=== PATIENT | female | born 1980 | race Two or more races ===

== ENCOUNTER 2018-07-19 09:00 | Inpatient (IN) | payer OTHER ==
[2018-07-19] MEDS ORDERED: TUBERCULIN PPD 5 TU/0.1ML SYRINGE (IN PATIENT USE ONLY) ID ONE ×2 (10:25→11:15)
[2018-07-19 10:42] VITALS: BMI 25.0
[2018-07-19 11:45] LABS: BASO % 0.5 % (0-2.0); EOS % 0.7 % (0-4.5); HEMATOCRIT 34.9 % (32.4-45.2); HEMOGLOBIN 11.6 GM/dL (10.7-15.3); LYMPH % 21.4 % (8-40); MCH 29.4 pg (25.7-33.7); MCHC 33.1 g/dl (32.0-36.0); MEAN CELL VOLUME 88.7 fl (80-96); MEAN PLT VOLUME 9.6 fl (7.5-11.1); MONO % 5.9 % (3.8-10.2); NEUT % 71.5 % (42.8-82.8); PLATELET COUNT 205 K/MM3 (134-434); RBC 3.93 M/mm3 (3.60-5.2); RDW 15.2 % (11.6-15.6); WHITE BLOOD COUNT 6.9 K/mm3 (4.0-10.0)
[2018-07-19] MEDS ORDERED: DINOPROSTONE 10 MG VAGINAL SUPPOSITORY VG ONE (12:00)
[2018-07-19 12:13] LABS: ANION GAP 11 MMOL/L (8-16); BLOOD UREA NITROGEN 12 mg/dL (7-18); CALCIUM 8.7 mg/dL (8.5-10.1); CHLORIDE 108 mmol/L (98-107); CO2 22 mmol/L (21-32); CREATININE 0.4 mg/dL (0.55-1.3); GLUCOSE,RANDOM 68 mg/dL (74-106); SODIUM 141 mmol/L (136-145)
[2018-07-19 12:34] LABS: INR 0.96 (0.83-1.09); PROTHROMBIN TIME (PATIENT) 11.3 SEC (9.7-13.0)
--- NOTE | 2018-07-19 12:55 | HP ---
Past Medical History - Primary Care Physician PCP:: Emilia Wolff - Admission Chief Complaint: Grand multiparous. preexisitng diabetes 2. 39 weeks'. Hx of demise History of Present Illness: 38 yo with Hx of demise at 39 weeks DM2 on insulin admitted for induction of labor History Source: Patient - Past Medical History ...: 7 ...Para: 5 ...Term: 5 ...: 0 ...Spon : 0 ...Induced : 0 ...Multiple Gestation: 0 ...LMP: 10/16/17 ... Weeks Gestation by Dates: 39.3 ...EDC by Dates: 07/23/18 ...EDC by Sono: 07/25/18 - Past Surgical History Past Surgical History: Yes: None Hx Myomectomy: No Hx Transabdominal Cerclage: No - Smoking History Smoking history: Never smoked - Alcohol/Substance Use Hx Alcohol Use: No History of Substance Use: reports: None - Social History Usual Living Arrangement: Yes: With Spouse Home Medications - Allergies Allergies/Adverse Reactions: Allergies Allergy/AdvReac Type Severity Reaction Status Date / Time No Known Allergies Allergy Verified 07/18/18 11:02 - Home Medications Home Medications: Ambulatory Orders Insulin Regular 5 units SQ TID 07/16/18 Insulin (Levemir) [Levemir Vial] 22 units SQ HS 07/18/18 Review of Systems - Review of Systems Constitutional: reports: No Symptoms Eyes: reports: No Symptoms HENT: reports: No Symptoms Neck: reports: No Symptoms Cardiovascular: reports: No Symptoms Respiratory: reports: No Symptoms Gastrointestinal: reports: No Symptoms Genitourinary: reports: No Symptoms Breasts: reports: No Symptoms Reported Musculoskeletal: reports: No Symptoms Integumentary: reports: No Symptoms Neurological: reports: No Symptoms Endocrine: reports: No Symptoms Hematology/Lymphatic: reports: No Symptoms Psychiatric: reports: No Symptoms Physical Exam - Maternity Vital Signs: Vital Signs Temperature 98.6 F 07/19/18 12:00 Pulse Rate 80 07/19/18 12:00 Respiratory Rate 18 07/19/18 12:00 Blood Pressure 109/68 07/19/18 12:00 O2 Sat by Pulse Oximetry (%) Constitutional: Yes: Well Nourished, No Distress HENT: Yes: WNL Neck: Yes: WNL Cardiovascular: Yes: WNL Lungs: Clear to auscultation Breast(s): Yes: WNL - Abdominal Exam/OB Fundal Height: 40 Number of Fetuses: Single Presentation: Vertex Contractions: No Category: I - Vaginal Exam/OB Dilatation (cm): 1 Effacement (%): 70 Amniotic Membrane Status: Intact Presentation: Vertex/Position Station: -1 - Physical Exam Musculoskeletal: Yes: WNL Extremities: Yes: WNL Edema: No Psychiatric: Yes: WNL, Alert, Oriented - Labs Lab Results: CBC, BMP 07/19/18 10:50 07/19/18 10:50 Hemorrhage Risk Assessment - Risk Factors Medium Risk Factors: Yes: Greater than 4 previous births Risk Score: 1 Risk Level: Medium Risk Problem List - Problems (1) Grand multipara Code(s): Z64.1 - PROBLEMS RELATED TO MULTIPARITY (2) Preexisting diabetes complicating in third trimester, antepartum Code(s): O24.313 - UNSP PRE-EXISTING DIABETES IN , THIRD TRIMESTER (3) 39 weeks gestation of Code(s): Z3A.39 - 39 WEEKS GESTATION OF Assessment/Plan hx of demise admitted for induction of labor diabetes 2 39 weeks Cat 1 Plan cervidil induction insulin coverage admit
[2018-07-19] MEDS: ELECTROLYTE-148 SOLN 1,000 ML IV SCH ×2 (13:05→17:00)
--- NOTE | 2018-07-19 14:25 | PN ---
Ante-Partal Exam - Subjective Subjective: Pt with contractions Q1-2 min no rom Vital Signs: Vital Signs Temperature 98.4 F 07/19/18 14:00 Pulse Rate 99 H 07/19/18 14:00 Respiratory Rate 18 07/19/18 14:00 Blood Pressure 110/69 07/19/18 14:00 O2 Sat by Pulse Oximetry (%) Bleeding: No Headache: No Visual changes: No Right upper quadrant pain: No - Contractions Contractions: Tachysystole (Greater than 5 contractions in a 10 minute period) Regularity: Coupling - Exam during Labor Heart Rate: 145 Variability: Moderate Category: II Monitor Accelerations: Present Monitor Decelerations: Variable Exam: Vaginal Dilatation (cm): 3 cm Effacement (%): 70 Amniotic Membrane Status: Bulging Presentation: Vertex Station: -2 - Assessment/Plan Assessment/Plan: IUP at 39 week cervidil removed Cat 2 - 1 variable decel tracing now Cat 1 diabetes 2 Plan Stadol prn
[2018-07-19] MEDS ORDERED: BUTORPHANOL TARTRATE 1 MG/ML VIAL IVPUSH PRN (14:26)
[2018-07-19] MEDS ORDERED: PROMETHAZINE HCL 25 MG/1 ML VIAL IVPUSH ONE (14:27)
[2018-07-19] MEDS ORDERED: PROMETHAZINE HCL 25 MG/1 ML VIAL ONE (14:41)
[2018-07-19] MEDS ORDERED: BUTORPHANOL TARTRATE 1 MG/ML VIAL ONE ×2 (14:41)
[2018-07-19] MEDS: INSULIN (NOVOLOG) ASPART 100 UNITS/ML 10ML VIAL SQ SCH ×3 (14:50→22:35)
--- NOTE | 2018-07-19 19:25 | PN ---
Ante-Partal Exam - Subjective Subjective: Pt with contractions no ROM bleeding call due to 2 min decel Vital Signs: Vital Signs Temperature 98.7 F 07/19/18 18:00 Pulse Rate 78 07/19/18 18:00 Respiratory Rate 20 07/19/18 18:00 Blood Pressure 129/73 07/19/18 18:00 O2 Sat by Pulse Oximetry (%) Bleeding: No Headache: No Visual changes: No Right upper quadrant pain: No - Contractions Contractions: Yes Regularity: Regular Intensity: Moderate Monitor Mode: External - Exam during Labor Variability: Moderate Category: I Monitor Accelerations: Present Monitor Decelerations: None Exam: Vaginal Dilatation (cm): 6 cm Effacement (%): 70 Amniotic Membrane Status: Ruptured Amniotic Fluid: Clear Presentation: Vertex Station: 0 - Intrapartum Hemorrhage Risk Risk Score: 0 Risk Level: Low Risk - Assessment/Plan Assessment/Plan: Active labor iup at 39.1 weeks cat 1 DM 2 98 at 6 pm plan
[2018-07-19] MEDS ORDERED: OXYTOCIN 20 UNITS in 0.9% NS 20 UNIT/1,000 ML INFUS.BAG IV ONE (19:29)
--- NOTE | 2018-07-19 19:49 | PN ---
Delivery - Delivery Vaginal Delivery: No Problems (Nuchal cord x2 intact perineum) Episiotomy/Laceration: None EBL (cc): 250 Delivery, Single - Stages of Labor Placenta: Yes: Spontaneous - Condition of Infant Gender: Male Position: OA - [place] Feeding Plan Initial Plan: Elected not to breastfeed exclusively throughout hospitalization
[2018-07-19] MEDS ORDERED: BENZOCAINE 20% 57 GM BOTTLE TP PRN (19:57)
[2018-07-19] MEDS ORDERED: WITCH HAZEL 50% (TUCKS) 40 PAD/JAR PAD TP PRN (19:57)
[2018-07-19] MEDS ORDERED: METHYLERGONOVINE MALEATE 0.2 MG/1 ML AMP IM PRN (19:57)
[2018-07-19] MEDS ORDERED: BISACODYL 10 MG SUPP.RECT RC PRN (19:57)
[2018-07-19] MEDS ORDERED: BENZOCAINE 28 GM HEMORRHOIDAL OINTMENT PR PRN (19:57)
[2018-07-19] MEDS ORDERED: OXYTOCIN 20 UNITS in 0.9% NS 20 UNIT/1,000 ML INFUS.BAG IV SCH (20:45)
[2018-07-20] MEDS: ACETAMINOPHEN 325 MG TABLET (FP) PO PRN ×2 (00:51→16:15)
[2018-07-20] MEDS: IBUPROFEN 600 MG TABLET (FP) PO PRN ×2 (00:54→16:17)
[2018-07-20] MEDS: INSULIN (NOVOLOG) ASPART 100 UNITS/ML 10ML VIAL SQ SCH ×3 (02:00→09:32)
[2018-07-20 07:50] LABS: BASO % 0.4 % (0-2.0); HEMATOCRIT 30.6 % (32.4-45.2); LYMPH % 19.6 % (8-40); MCH 31.4 pg (25.7-33.7); MCHC 35.8 g/dl (32.0-36.0); MEAN CELL VOLUME 87.9 fl (80-96); MEAN PLT VOLUME 9.7 fl (7.5-11.1); MONO % 6.5 % (3.8-10.2); NEUT % 72.5 % (42.8-82.8); PLATELET COUNT 164 K/MM3 (134-434); RBC 3.49 M/mm3 (3.60-5.2); RDW 15.3 % (11.6-15.6); WHITE BLOOD COUNT 7.6 K/mm3 (4.0-10.0)
[2018-07-20] MEDS ORDERED: DIPHTH,PERTUSS(ACELL),TET 0.5 ML DISP.SYRIN IM ONE (10:00)
[2018-07-20] MEDS: INSULIN SLIDING SCALE (NOVOLOG) 1 VIAL SQ SCH ×3 (11:27→22:33)
[2018-07-20] MEDS: ELECTROLYTE-148 SOLN 1,000 ML IV SCH (12:30)
--- NOTE | 2018-07-20 20:30 | CONSULT ---
Consult Consult Specialty:: ENDOCRINE/DIABETES MELLITUS Referred by:: ONEL MARINELLI MD. Reason for Consultation:: DIABETES MELLITUS 2/ - History of Present Illness Chief Complaint: LOWER SUGAR History of Present Illness: 38 yo pmh,type 2 DM, required high dose insulin gestational period, with Hx of demise at 39 weeks, now improved glycemia,denies nausea vomiting - History Source History Provided By: Patient - Past Surgical History Past Surgical History: Yes: None - Alcohol/Substance Use Hx Alcohol Use: No History of Substance Use: reports: None - Smoking History Smoking history: Never smoked Home Medications - Allergies Allergies/Adverse Reactions: Allergies Allergy/AdvReac Type Severity Reaction Status Date / Time No Known Allergies Allergy Verified 07/18/18 11:02 - Home Medications Home Medications: Ambulatory Orders Insulin Regular 5 units SQ TID 07/16/18 Insulin (Levemir) [Levemir Vial] 22 units SQ HS 07/18/18 Review of Systems - Review of Systems Constitutional: reports: No Symptoms Eyes: reports: No Symptoms HENT: reports: No Symptoms Neck: reports: No Symptoms Cardiovascular: reports: No Symptoms Respiratory: reports: No Symptoms Gastrointestinal: reports: No Symptoms Genitourinary: reports: No Symptoms Musculoskeletal: reports: No Symptoms Integumentary: reports: No Symptoms Neurological: reports: No Symptoms Endocrine: reports: Increased Thirst Physical Exam Vital Signs: Vital Signs Temperature 98.0 F 07/20/18 14:00 Pulse Rate 65 07/20/18 14:00 Respiratory Rate 18 07/20/18 14:00 Blood Pressure 112/70 07/20/18 14:00 O2 Sat by Pulse Oximetry (%) 100 07/19/18 20:55 Constitutional: Yes: Calm Eyes: Yes: EOM Intact HENT: Yes: Normocephalic Neck: Yes: Trachea Midline Respiratory: Yes: CTA Bilaterally Gastrointestinal: Yes: Normal Bowel Sounds ...Rectal Exam: Yes: Deferred Renal/: Yes: WNL Musculoskeletal: Yes: WNL, Muscle Weakness Neurological: Yes: Alert, Oriented Labs: CBC, BMP 07/20/18 06:30 07/19/18 10:50 Problem List - Problems (1) DM type 2 (diabetes mellitus, type 2) Code(s): E11.9 - TYPE 2 DIABETES MELLITUS WITHOUT COMPLICATIONS Assessment/Plan Current Active Problems dm 2 neuropathy 39 weeks gestation of (Acute) Grand multipara (Acute) Preexisting diabetes complicating in third trimester, antepartum ( Acute) Abnormal Lab Results 07/20/18 06:30 RBC 3.49 L Hct 30.6 L Laboratory Results - last 24 hr 07/19/18 07/20/18 07/20/18 23:24 03:58 06:30 WBC 7.6 RBC 3.49 L Hgb 11.0 Hct 30.6 L MCV 87.9 MCH 31.4 MCHC 35.8 RDW 15.3 Plt Count 164 MPV 9.7 Absolute Neuts (auto) 5.5 Neutrophils % 72.5 Lymphocytes % 19.6 Monocytes % 6.5 Eosinophils % 1.0 Basophils % 0.4 Nucleated RBC % 0 POC Glucometer 119 138 07/20/18 07/20/18 07/20/18 06:40 08:12 11:21 WBC RBC Hgb Hct MCV MCH MCHC RDW Plt Count MPV Absolute Neuts (auto) Neutrophils % Lymphocytes % Monocytes % Eosinophils % Basophils % Nucleated RBC % POC Glucometer 141 91 128 07/20/18 17:00 WBC RBC Hgb Hct MCV MCH MCHC RDW Plt Count MPV Absolute Neuts (auto) Neutrophils % Lymphocytes % Monocytes % Eosinophils % Basophils % Nucleated RBC % POC Glucometer 137 Laboratory Tests 02/11/18 12:46 Hemoglobin A1c % 5.7 plan: LEVEMIR 10 UNITS @HS IF SUGAR OVER 200MG/DL BGM ACHS NOVOLOG COVERAGE WILL NEED FOLLOW UP FOR OUTPATIENT DIABETIC CONTROL NUTRITION CONSULT
[2018-07-20] MEDS ORDERED: INSULIN (LEVEMIR) 100 UNITS/ML UNITS SQ SCH (22:00)
[2018-07-20 22:32] VITALS: PULSE 64
[2018-07-21] MEDS: ACETAMINOPHEN 325 MG TABLET (FP) PO PRN (03:12)
[2018-07-21] MEDS: IBUPROFEN 600 MG TABLET (FP) PO PRN (03:14)
--- NOTE | 2018-07-21 06:40 | PN ---
Post Note - Post Date of Delivery: 07/19/18 Post Day: 1 Vital Signs: Vital Signs - 24 hr 07/20/18 07/20/18 07/20/18 10:00 14:00 22:00 Temperature 98.4 F 98.0 F 97.8 F Pulse Rate 60 65 64 Respiratory 18 18 18 Rate Blood Pressure 112/72 112/70 122/70 Labs: Laboratory Results - last 24 hr 07/20/18 07/20/18 07/20/18 06:30 06:40 08:12 WBC 7.6 RBC 3.49 L Hgb 11.0 Hct 30.6 L MCV 87.9 MCH 31.4 MCHC 35.8 RDW 15.3 Plt Count 164 MPV 9.7 Absolute Neuts (auto) 5.5 Neutrophils % 72.5 Lymphocytes % 19.6 Monocytes % 6.5 Eosinophils % 1.0 Basophils % 0.4 Nucleated RBC % 0 POC Glucometer 141 91 07/20/18 07/20/18 07/20/18 11:21 17:00 21:11 WBC RBC Hgb Hct MCV MCH MCHC RDW Plt Count MPV Absolute Neuts (auto) Neutrophils % Lymphocytes % Monocytes % Eosinophils % Basophils % Nucleated RBC % POC Glucometer 128 137 149 - Subjective Subjective: No Complaints - Objective Afebrile: Yes Breast: Not engorged Abdomen: Soft, Non-tender Uterus: Fundus firm Vagina: Scant lochia Extremities: Non-tender - Assessment/Plan (1) Grand multipara Assessment: S/P Normal Plan: Routine Care
--- NOTE | 2018-07-21 06:41 | DS ---
Physical Exam-[employer]ING [employer] Vital Signs: Vital Signs Temperature 97.8 F 07/20/18 22:00 Pulse Rate 64 07/20/18 22:00 Respiratory Rate 18 07/20/18 22:00 Blood Pressure 122/70 07/20/18 22:00 O2 Sat by Pulse Oximetry (%) 100 07/19/18 20:55 Constitutional: Yes: Well Nourished, No Distress Neck: Yes: WNL Cardiovascular: Yes: WNL Respiratory: Yes: WNL, Regular Gastrointestinal: Yes: WNL, Soft ....Post : Yes: Uterus firm, Uterus non-tender Edema: No Labs: CBC, BMP 07/20/18 06:30 07/19/18 10:50 Delivery - Delivery Vaginal Delivery: No Problems (Nuchal cord x2 intact perineum) Type of Anesthesia: None Episiotomy/Laceration: None EBL (cc): 250 Delivery, Single - Stages of Labor Date 1st Stage Initiatied: 07/19/18 Time 1st Stage Initiated: 14:30 Date 2nd Stage Initiated: 07/19/18 Time 2nd Stage Initiated: 19:30 Date of Delivery: 07/19/18 Time of Delivery: 19:40 Time Placenta Delivered: 19:45 Placenta: Yes: Spontaneous - 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 Present: No Gender: Male Weight: 7 lb Position: OA Total Hours ROM (Hrs/Mins): 0Hrs/40Mins - 1 Minute Total Score: 9 5 Minutes Total Score: 9 - Feeding Plan Initial Plan: Elected not to breastfeed exclusively throughout hospitalization Discharge Summary Reason For Visit: INDUCTION OF LABOR Current Active Problems 39 weeks gestation of (Acute) DM type 2 (diabetes mellitus, type 2) (Acute) Grand multipara (Acute) Preexisting diabetes complicating in third trimester, antepartum ( Acute) Procedures: Principal: Normal Vaginal Delivery Condition: Good - Instructions Diet, Activity, Other Instructions: Physical activity Resume your normal everyday activity as tolerated no heavy lifting or exercise until seen by your surgeon. You may walk unlimited fredis of and climb stairs. You may resume driving the car when you feel safe and comfortable behind the wheel. No sexual activity as instructed. Wound care If you have a bandage, leave it on, and keep dry for 48-72 hours. After that time discard the outer bandage. If they are tapes on the skin under the out of bandage leave them in place. They will peel off in the next 7 to 10 days. Do Not Peel them off. You may shower the day after surgery. If there are tapes present on the skin, you may shower over them. Diet There are no dietary restrictions. Eat healthy, high-fiber foods. Drink 6 to 8 glasses of liquid each day. This will assist in keeping your bowels are regular. Pain management You may take Tylenol or acetaminophen or Ibuprofen (for example, Motrin, Advil etc.) from my pain prescription medication is ordered should be taken as prescribed for moderate to severe pain. Call MD for any of the following: Severe pain not relieved by medication Fever of 101 or higher Excessive bleeding or drainage on dressing Inability to urinate Disposition: HOME - Home Medications Comprehensive Discharge Medication List: Ambulatory Orders Insulin Regular 5 units SQ TID 07/16/18 Insulin (Levemir) [Levemir Vial] 22 units SQ HS 07/18/18
[2018-07-21] MEDS: INSULIN SLIDING SCALE (NOVOLOG) 1 VIAL SQ SCH ×2 (07:31→12:31)
[2018-07-21 09:35] VITALS: BP 129/65; TEMP 98.2
== END 2018-07-21 13:35 | disposition home or self-care (01) | DRG 560 ==
LOC: JLDR 09:00 → J3W 21:29
PROVIDERS: ADMIT Obstetrics & Gynecology; ATTEND Obstetrics & Gynecology
PROC: 10E0XZZ Delivery of Products of Conception, External Approach (ICD-10-PCS; principal; 2018-07-19)
DX: O24.12 Pre-existing type 2 diabetes mellitus, in childbirth (principal); E11.9 Type 2 diabetes mellitus without complications; O69.81X0 Labor and delivery complicated by cord around neck, without compression, not applicable or unspecified; Z3A.39 39 weeks gestation of pregnancy; Z37.0 Single live birth; Z79.4 Long term (current) use of insulin
CPT/HCPCS: 36415; 59409; 80048; 82962; 83036; 85025; 85610; 85730; 86593; 86850; 86900; 86901; 87389; 90686; 90715; G0008

== ENCOUNTER 2019-04-17 11:36 | Emergency (ER) | payer OTHER ==
[2019-04-17 11:48] VITALS: PULSE 70; BMI 28.7
--- NOTE | 2019-04-17 12:56 | PDOC ---
History of Present Illness - General Chief Complaint: Pain, Acute Stated Complaint: ABD PAIN / R/O UTI Time Seen by Provider: 04/17/19 12:07 History Source: Spouse Exam Limitations: No Limitations - History of Present Illness Initial Comments: 04/17/19 12:51 Pt says that she would like her to translate for her. 38 yo F w/ a h/o NIDDM, HLD comes in with c/o 1 week of burning/pain on urination with frequency/urgency/poor stream, (+)nausea and suprapubic pain/ pressure. She went to her PMD 4 days ago, was given a Rx for macrobid which she has been taking but has not helped with symptoms. She took alve yesterday but it did not help much with symptoms. denies vaginal symptoms, (+)diffuse low back pain. No fever/chills, no vomiting/diarrhea, mild decrease in appetite due to nausea. 04/17/19 12:52 Past History - Past Medical History Allergies/Adverse Reactions: Allergies Allergy/AdvReac Type Severity Reaction Status Date / Time No Known Allergies Allergy Verified 04/17/19 11:48 Home Medications: Ambulatory Orders Insulin Regular 5 units SQ TID 07/16/18 Insulin (Levemir) [Levemir Vial] 22 units SQ HS 07/18/18 Ibuprofen [Motrin -] 600 mg PO QID #28 tablet 07/21/18 Asthma: No Cancer: No Cardiac Disorders: No COPD: No Diabetes: Yes HTN: No Seizures: No Thyroid Disease: No - Suicide/Smoking/Psychosocial Hx Smoking History: Never smoked Hx Alcohol Use: No Drug/Substance Use Hx: No Hx Substance Use Treatment: No Review of Systems - Review of Systems Able to Perform ROS?: Yes Constitutional: No: Chills, Fever, Malaise, Night Sweats HEENTM: No: Eye Pain, Recent change in vision, Throat Pain Respiratory: No: Cough, Shortness of Breath Cardiac (ROS): No: Chest Pain, Palpitations, Chest Tightness ABD/GI: Yes: Nausea, Abdominal cramping. No: Diarrhea, Vomiting : Yes: Dysuria. No: Hematuria Musculoskeletal: Yes: Back Pain Integumentary: No: Rash Neurological: No: Headache, Numbness, Dizziness Psychiatric: Yes: Change in Appetite Endocrine: No: Unexplained Weight Loss *Physical Exam - Vital Signs Last Vital Signs Temp Pulse Resp BP Pulse Ox 98.5 F 70 16 100/53 L 98 04/17/19 11:45 04/17/19 11:45 04/17/19 11:45 04/17/19 11:45 04/17/19 11:45 - Physical Exam General Appearance: Yes: Nourished. No: Apparent Distress HEENT: positive: KERRI, Normal ENT Inspection, Normal Voice. negative: Pale Conjunctivae, Scleral Icterus (R), Scleral Icterus (L) Neck: positive: Supple. negative: Decreased range of motion, Tender midline Respiratory/Chest: positive: Lungs Clear, Normal Breath Sounds. negative: Respiratory Distress, Accessory Muscle Use Cardiovascular: positive: Regular Rhythm, Regular Rate Gastrointestinal/Abdominal: positive: Normal Bowel Sounds, Tender ( suprapubic area. NO tenderness IN rlq/ruq. (-) romero's sign, (-)tenderness at McBurney's point. NO CVA tenderness), Soft Musculoskeletal: positive: Normal Inspection. negative: CVA Tenderness, Decreased Range of Motion Extremity: positive: Normal Capillary Refill, Normal Inspection, Normal Range of Motion. negative: Tender, Pedal Edema Integumentary: positive: Normal Color, Dry. negative: Jaundice, Rash Neurologic: positive: Fully Oriented, Alert, Normal Mood/Affect ED Treatment Course - LABORATORY CBC & Chemistry Diagram: 04/17/19 15:15 04/17/19 15:15 Medical Decision Making - Medical Decision Making 04/17/19 12:56 38 yo F w/ cystitis. Will check FS and reassess. Will change macrobid to 3rd gen [facility] and send a urine culture. 04/17/19 14:48 UA without leuks, no nitrites, but pt still with suprapubic tenderness and UTI symptoms. WIll do labs, CT abdomen/pelvis and reassess 04/17/19 16:10 Change of shift, care of patient signed over to SHANNAN Farley who will follow up CT, reassess patient. 38 yo F w/ DM, unresponsive to macrobid for cystitis, still with suprapubic pain, nausea and decrease in appetite, pending CT results , R/O other intraabdominal pathology. *DC/Admit/Observation/Transfer Diagnosis at time of Disposition: Abdominal pain Qualifiers: Abdominal location: lower abdomen, unspecified Qualified Code(s): R10.30 - Lower abdominal pain, unspecified - Referrals Referrals: Alonso Trujillo MD [Primary Care Provider] - - Patient Instructions - Post Discharge Activity
[2019-04-17 13:13] LABS: URINE APPEARANCE CLEAR; URINE BILIRUBIN NEGATIVE (NEGATIVE); URINE COLOR YELLOW; URINE GLUCOSE (UA) NEGATIVE (NEGATIVE); URINE KETONE NEGATIVE (NEGATIVE); URINE LEUK ESTERASE NEGATIVE (NEGATIVE); URINE NITRITE NEGATIVE (NEGATIVE); URINE PROTEIN NEGATIVE (NEGATIVE); URINE UROBILINOGEN 0.2 mg/dL (0.2-1.0)
[2019-04-17] MEDS ORDERED: PHENAZOPYRIDINE HCL 100 MG TABLET (FP) PO ONE (13:16)
[2019-04-17] MEDS ORDERED: PHENAZOPYRIDINE HCL 100 MG TABLET (FP) ONE (13:24)
[2019-04-17 15:31] LABS: BASO % 0.7 % (0-2.0); EOS % 1.1 % (0-4.5); HEMATOCRIT 35.5 % (32.4-45.2); HEMOGLOBIN 12.1 GM/dL (10.7-15.3); LYMPH % 33.4 % (8-40); MCHC 34.1 g/dl (32.0-36.0); MEAN CELL VOLUME 84.9 fl (80-96); MEAN PLT VOLUME 8.8 fl (7.5-11.1); MONO % 6.3 % (3.8-10.2); NEUT % 58.5 % (42.8-82.8); PLATELET COUNT 328 K/MM3 (134-434); RBC 4.19 M/mm3 (3.60-5.2); RDW 14.9 % (11.6-15.6); WHITE BLOOD COUNT 8.6 K/mm3 (4.0-10.0)
[2019-04-17 15:49] LABS: MAGNESIUM 2.2 mg/dL (1.8-2.4); PHOSPHOROUS 3.3 mg/dL (2.5-4.9)
[2019-04-17 15:52] LABS: ALBUMIN 4.4 g/dl (3.4-5.0); BILIRUBIN,TOTAL 0.4 mg/dL (0.2-1); CALCIUM 9.6 mg/dL (8.5-10.1); CREATININE 0.6 mg/dL (0.55-1.3)
[2019-04-17 15:54] LABS: INR 1.03 (0.83-1.09); PROTHROMBIN TIME (PATIENT) 12.2 SEC (9.7-13.0)
[2019-04-17 17:22] VITALS: BP 103/52; TEMP 98.1
--- NOTE | 2019-04-17 17:42 | PDOC ---
*Physical Exam - Vital Signs Last Vital Signs Temp Pulse Resp BP Pulse Ox 98.1 F 70 16 103/52 L 100 04/17/19 17:21 04/17/19 17:21 04/17/19 11:45 04/17/19 17:21 04/17/19 17:21 - Physical Exam General Appearance: Yes: Nourished, Appropriately Dressed. No: Apparent Distress Gastrointestinal/Abdominal: positive: Normal Bowel Sounds, Flat, Soft. negative : Tender, Guarding, Rebound, Tenderness Neurologic: positive: Fully Oriented, Alert, Normal Mood/Affect, Normal Response ED Treatment Course - LABORATORY CBC & Chemistry Diagram: 04/17/19 15:15 04/17/19 15:15 - ADDITIONAL ORDERS Additional order review: Laboratory Results 04/17/19 04/17/19 04/17/19 15:15 15:15 15:15 PT with INR 12.20 INR 1.03 Sodium Potassium Chloride Carbon Dioxide Anion Gap BUN Creatinine Est GFR (CKD-EPI)AfAm Est GFR (CKD-EPI)NonAf POC Glucometer Random Glucose Calcium Phosphorus 3.3 Magnesium 2.2 Total Bilirubin AST ALT Alkaline Phosphatase Total Protein Albumin Lipase Beta HCG, Quant Urine Color Urine Appearance Urine pH Ur Specific [place] Urine Protein Urine Glucose (UA) Urine Ketones Urine Blood Urine Nitrite Urine Bilirubin Urine Urobilinogen Ur Leukocyte Esterase Urine HCG, Qual Blood Type A POSITIVE Antibody Screen Negative 04/17/19 04/17/19 04/17/19 15:15 15:15 15:15 PT with INR INR Sodium 141 Potassium 4.0 Chloride 106 Carbon Dioxide 28 Anion Gap 7 L BUN 11.0 Creatinine 0.6 Est GFR (CKD-EPI)AfAm 134.01 Est GFR (CKD-EPI)NonAf 115.63 POC Glucometer Random Glucose 104 Calcium 9.6 Phosphorus Magnesium Total Bilirubin 0.4 AST 16 ALT 19 Alkaline Phosphatase 74 Total Protein 8.0 Albumin 4.4 Lipase 114 Beta HCG, Quant < 1.0 Urine Color Urine Appearance Urine pH Ur Specific [place] Urine Protein Urine Glucose (UA) Urine Ketones Urine Blood Urine Nitrite Urine Bilirubin Urine Urobilinogen Ur Leukocyte Esterase Urine HCG, Qual Blood Type Antibody Screen 04/17/19 04/17/19 04/17/19 13:13 12:45 12:45 PT with INR INR Sodium Potassium Chloride Carbon Dioxide Anion Gap BUN Creatinine Est GFR (CKD-EPI)AfAm Est GFR (CKD-EPI)NonAf POC Glucometer 170 Random Glucose Calcium Phosphorus Magnesium Total Bilirubin AST ALT Alkaline Phosphatase Total Protein Albumin Lipase Beta HCG, Quant Urine Color Yellow Urine Appearance Clear Urine pH 6.0 Ur Specific [place] 1.007 L Urine Protein Negative Urine Glucose (UA) Negative Urine Ketones Negative Urine Blood Negative Urine Nitrite Negative Urine Bilirubin Negative Urine Urobilinogen 0.2 Ur Leukocyte Esterase Negative Urine HCG, Qual Negative Blood Type Antibody Screen 04/17/19 04/17/19 15:15 13:13 RBC 4.19 MCV 84.9 MCHC 34.1 RDW 14.9 MPV 8.8 Neutrophils % 58.5 Lymphocytes % 33.4 D Monocytes % 6.3 Eosinophils % 1.1 Basophils % 0.7 POC Glucometer 170 - Medications Given in the ED: ED Medications Discontinued Medications Generic Name Dose Route Start Last Admin Trade Name Freq PRN Reason Stop Dose Admin Phenazopyridine HCl 100 mg 04/17/19 13:16 04/17/19 13:29 Pyridium - PO 04/17/19 13:17 100 mg ONCE ONE Administration Medical Decision Making - Medical Decision Making 04/17/19 18:12 Sign out received from SHANNAN Stahl at 16:00 CTAP shows a L ruptured ovarian cyst; possible cause for some pain Will treat with ibuprofen Will switch macrobid to keflex Pt to f/u with her PCP DC home I discussed the physical exam findings, ancillary test results and final diagnoses with the patient. I answered all of the patient's questions. The patient was satisfied with the care received and felt comfortable with the discharge plan and treatment plan. The Patient agrees to follow up with the primary care physician/specialist within 24-72 hours. Return precautions were given. *DC/Admit/Observation/Transfer Diagnosis at time of Disposition: Abdominal pain Qualifiers: Abdominal location: lower abdomen, unspecified Qualified Code(s): R10.30 - Lower abdominal pain, unspecified Ovarian cyst Qualifiers: Laterality: bilateral Qualified Code(s): N83.201 - Unspecified ovarian cyst, right side UTI (urinary tract infection) Qualifiers: Urinary tract infection type: acute cystitis Hematuria presence: without hematuria Qualified Code(s): N30.00 - Acute cystitis without hematuria - Discharge Dispostion Disposition: HOME Condition at time of disposition: Stable Decision to Admit order: No - Prescriptions Prescriptions: Cephalexin Monohydrate [Keflex -] 500 mg PO BID #14 capsule Ibuprofen 600 mg PO Q6H #30 tablet Phenazopyridine HCl [Pyridium -] 100 mg PO TID #9 tablet - Referrals Referrals: Alonso Trujillo MD [Primary Care Provider] - - Patient Instructions Printed Discharge Instructions: DI for Urinary Tract Infection (UTI), DI for Ovarian Cyst Additional Instructions: You were evaluated for your abdominal pain You have ovarian cysts, one of which ruptured Take Motrin 600mg every 6 hours as needed for pain for one week I am switching your antibiotics to Keflex since you are still having urinary symptoms; take your first dose tonight. Please stop taking the macrobid. You may take the pyridium as needed for pain with urination. Take the medication with food Follow up with your primary care doctor this week Return to the ER for worsening pain, fever, back pain, vomiting, or if you have any changes in your symptoms - Post Discharge Activity
== END 2019-04-17 18:20 | disposition home or self-care (01) ==
LOC: JER 11:36
DX: N30.00 Acute cystitis without hematuria (principal); N83.202 Unspecified ovarian cyst, left side
CPT/HCPCS: 36415; 74177-TC; 80053; 81003; 82962; 83690; 83735; 84100; 84702; 84703; 85025; 85610; 86850; 86900; 86901; 87086; 99283-25

== ENCOUNTER 2019-10-28 09:47 | Emergency (ER) | payer OTHER ==
[2019-10-28 10:09] VITALS: BP 92/52; PULSE 96; TEMP 98.2; BMI 25.8
--- NOTE | 2019-10-28 10:46 | PDOC ---
History of Present Illness - General History Source: Patient, Spouse - History of Present Illness Timing/Duration: reports: constant <David Oconnor - Last Filed: 10/28/19 12:01> <Lindsey Wright - Last Filed: 11/04/19 22:14> - General Chief Complaint: Vaginal Bleeding Stated Complaint: VAGINAL BLEEDING Time Seen by Provider: 10/28/19 10:26 Past History - Past Medical History Asthma: No Cancer: No Cardiac Disorders: No COPD: No Diabetes: Yes HTN: No Seizures: No Thyroid Disease: No - Reproductive History Therapeutic (s) & number: No - Psycho Social/Smoking Cessation Hx Smoking History: Never smoked Information on smoking cessation initiated: No Hx Alcohol Use: No Drug/Substance Use Hx: No Hx Substance Use Treatment: No <David Oconnor - Last Filed: 10/28/19 12:01> <Lindsey Wright - Last Filed: 11/04/19 22:14> - Past Medical History Allergies/Adverse Reactions: Allergies Allergy/AdvReac Type Severity Reaction Status Date / Time No Known Allergies Allergy Verified 04/17/19 11:48 Home Medications: Ambulatory Orders Insulin Regular 5 units SQ TID 07/16/18 Insulin (Levemir) [Levemir Vial] 22 units SQ HS 07/18/18 Ibuprofen [Motrin -] 600 mg PO QID #28 tablet 07/21/18 Cephalexin Monohydrate [Keflex -] 500 mg PO BID #14 capsule 04/17/19 Ibuprofen 600 mg PO Q6H #30 tablet 04/17/19 Phenazopyridine HCl [Pyridium -] 100 mg PO TID #9 tablet 04/17/19 Review of Systems - Review of Systems Constitutional: No: Chills, Fever ABD/GI: No: Nausea, Vomiting, Abdominal cramping : No: Dysuria, Flank Pain, Hematuria <David Oconnor - Last Filed: 10/28/19 12:01> *Physical Exam - Vital Signs Last Vital Signs Temp Pulse Resp BP Pulse Ox 98.2 F 96 H 17 92/52 L 100 10/28/19 10:05 10/28/19 10:05 10/28/19 10:05 10/28/19 10:05 10/28/19 10:05 - Physical Exam General Appearance: Yes: Appropriately Dressed. No: Apparent Distress HEENT: positive: Normal Voice Neck: positive: Supple Respiratory/Chest: negative: Respiratory Distress Gastrointestinal/Abdominal: positive: Soft. negative: Tender Integumentary: positive: Dry, Warm Neurologic: positive: Fully Oriented, Alert, Normal Mood/Affect <David Oconnor - Last Filed: 10/28/19 12:01> - Vital Signs Last Vital Signs Temp Pulse Resp BP Pulse Ox 98.2 F 96 H 17 92/52 L 100 10/28/19 10:05 10/28/19 10:05 10/28/19 10:05 10/28/19 10:05 10/28/19 10:05 <Lindsey Wright - Last Filed: 11/04/19 22:14> Medical Decision Making - Medical Decision Making 10/28/19 10:40 39 yo F, multipara, s/p IUD placement 1 year ago with irregular menses since per patient, unsure if she has a hormonal IUD or copper. States for the past 2 weeks she has been bleeding initially heavy now light. States her IUD fell out 2 days ago and has picture of IUD on her phone. No abdominal pain, weakness dizziness nausea or vomiting. see exam DUB w/ subsequent expulsion of IUD (has picture of expelled IUD on smart phone) BP low in ED, unclear if baseline per pt), no weakness/dizziness Abd benign, will do pelvic -cbc/preg -anticipate dc w/ [facility] f/u 10/28/19 12:01 Unable to locate patient in ER or waiting room at this time prior to pelvic exam and labs. Possible elopement. ED nurse aware <David Oconnor - Last Filed: 10/28/19 12:01> - Medical Decision Making I reviewed the case with the mid-level practitioner and agree with the mid-level practitioner's assessment, diagnosis and disposition. <Lindsey Wright - Last Filed: 11/04/19 22:14> Discharge - Discharge Information Problems reviewed: Yes <David Oconnor - Last Filed: 10/28/19 12:01> <Lindsey Wright - Last Filed: 11/04/19 22:14> - Discharge Information Clinical Impression/Diagnosis: Patient left before treatment completed Condition: Unchanged/Unknown Disposition: [facility]
== END 2019-10-28 12:12 | disposition left against medical advice (07) ==
LOC: JER 09:47
DX: N93.9 Abnormal uterine and vaginal bleeding, unspecified (principal)
CPT/HCPCS: 99281-25

== ENCOUNTER 2021-12-30 10:10 | Inpatient (IN) | payer OTHER ==
[2021-12-30 11:27] VITALS: BMI 25.9
[2021-12-30] MEDS ORDERED: AMPICILLIN SODIUM 2 GM VIAL ONE (12:09)
[2021-12-30] MEDS ORDERED: AMPICILLIN - 2 GM in SODIUM CHLORIDE 100 ML IVPB ONE (12:15)
[2021-12-30] MEDS ORDERED: DINOPROSTONE 10 MG VAGINAL SUPPOSITORY VG ONE (12:45)
[2021-12-30] MEDS ORDERED: ELECTROLYTE-148 SOLN 1,000 ML IV SCH (14:00)
[2021-12-30] MEDS ORDERED: OXYTOCIN 20 UNITS in 0.9% NS 20 UNIT/1,000 ML INFUS.BAG IV ONE ×2 (14:11→19:46)
[2021-12-30] MEDS ORDERED: OXYTOCIN 30 UNITS in 0.9% NS 30 UNIT/500 ML INFUS.BAG IVPB SCH (15:00)
[2021-12-30] MEDS ORDERED: AMPICILLIN - 1 GM in SODIUM CHLORIDE 100 ML IVPB SCH (16:15)
[2021-12-30] MEDS ORDERED: AMPICILLIN SODIUM 1 GM VIAL ONE (16:29)
[2021-12-30] MEDS ORDERED: OXYTOCIN 30 UNITS in 0.9% NS 30 UNIT/500 ML INFUS.BAG IVPB ONE (17:52)
[2021-12-30] MEDS ORDERED: BUTORPHANOL TARTRATE 2 MG/ML VIAL IVPB ONE (18:20)
[2021-12-30] MEDS ORDERED: PROMETHAZINE HCL 25 MG/1 ML VIAL IVPB ONE (18:20)
[2021-12-30] MEDS ORDERED: PROMETHAZINE HCL 25 MG/1 ML VIAL ONE (18:30)
[2021-12-30] MEDS ORDERED: BUTORPHANOL TARTRATE 2 MG/ML VIAL ONE (18:30)
[2021-12-30] MEDS ORDERED: WITCH HAZEL 50% (TUCKS) 40 PAD/JAR PAD TP PRN (19:25)
[2021-12-30] MEDS ORDERED: METHYLERGONOVINE MALEATE 0.2 MG/1 ML AMP IM PRN (19:25)
[2021-12-30] MEDS ORDERED: oxyCODONE HCL 5 MG TABLET PO PRN (19:25)
[2021-12-30] MEDS ORDERED: BENZOCAINE 28 GM HEMORRHOIDAL OINTMENT TP PRN (19:25)
[2021-12-30] MEDS ORDERED: ACETAMINOPHEN 325 MG TABLET (FP) PO PRN (19:25)
[2021-12-30] MEDS ORDERED: BISACODYL 10 MG SUPP.RECT RC PRN (19:25)
[2021-12-30] MEDS ORDERED: BENZOCAINE 20% 57 GM BOTTLE TP PRN (19:25)
[2021-12-30] MEDS ORDERED: OXYTOCIN 20 UNITS in 0.9% NS 20 UNIT/1,000 ML INFUS.BAG IV SCH (19:30)
[2021-12-30] MEDS ORDERED: IBUPROFEN 600 MG TABLET (FP) PO ONE (19:45)
[2021-12-30] MEDS: IBUPROFEN 600 MG TABLET (FP) PO PRN ×2 (19:50→23:04)
[2021-12-30 20:23] LABS: CORD BASE EXCESS -1.8 mmol/L (0-2); CORD HCO3 24.7 mmHg (20-29); CORD PCO2 48.6 mmHg (30-78); CORD pH 7.324 (7.14-7.44)
[2021-12-30 20:24] LABS: CORD BASE EXCESS -1.2 mmol/L (0-2); CORD HCO3 22.7 mmHg (20-29); CORD PCO2 36.1 mmHg (30-78); CORD pH 7.417 (7.14-7.44)
[2021-12-30] MEDS: INSULIN (LEVEMIR) 100 UNITS/ML UNITS SQ SCH (22:35)
[2021-12-31 08:35] LABS: BASO % 0.3 % (0-2.0); HEMATOCRIT 32.1 % (32.4-45.2); HEMOGLOBIN 10.8 GM/dL (10.7-15.3); LYMPH % 16.1 % (8-40); MCH 29.8 pg (25.7-33.7); MCHC 33.6 g/dl (32.0-36.0); MEAN CELL VOLUME 88.9 fl (80-96); MEAN PLT VOLUME 9.9 fl (7.5-11.1); MONO % 5.9 % (3.8-10.2); NEUT % 76.7 % (42.8-82.8); PLATELET COUNT 145 10^3/uL (134-434); RBC 3.61 M/mm3 (3.60-5.2); RDW 15.2 % (11.6-15.6); WHITE BLOOD COUNT 8.7 K/mm3 (4.0-10.0)
[2021-12-31] MEDS: FERROUS SO4 325 MG TABLET (FP) PO SCH ×3 (09:55→17:05)
[2021-12-31] MEDS: PRENATAL VITAMINS W/ FOLIC ACID TABLET (FP) PO SCH (09:56)
[2021-12-31] MEDS: IBUPROFEN 600 MG TABLET (FP) PO PRN ×2 (17:05→21:48)
[2021-12-31] MEDS: INSULIN (LEVEMIR) 100 UNITS/ML UNITS SQ SCH (21:52)
[2021-12-31] MEDS ORDERED: SENNOSIDES/DOCUSATE COMBO (SENNA PLUS) TABLET (UD) PO PRN (22:00)
[2022-01-01 08:44] VITALS: BP 111/62; PULSE 67; TEMP 98.3
[2022-01-01] MEDS: FERROUS SO4 325 MG TABLET (FP) PO SCH ×3 (09:08→17:12)
[2022-01-01] MEDS: PRENATAL VITAMINS W/ FOLIC ACID TABLET (FP) PO SCH (09:08)
== END 2022-01-01 17:30 | disposition home or self-care (01) | DRG 560 ==
LOC: JLDR 10:10 → J3W 21:16
PROVIDERS: ADMIT Obstetrics & Gynecology; ATTEND Obstetrics & Gynecology
PROC: 10E0XZZ Delivery of Products of Conception, External Approach (ICD-10-PCS; principal; 2021-12-30)
DX: O24.82 Other pre-existing diabetes mellitus in childbirth (principal); Z3A.40 40 weeks gestation of pregnancy; Z37.0 Single live birth
CPT/HCPCS: 36415; 36600; 59025; 59409; 82803; 82962; 85025